=== PATIENT | female | born 1995 | race Hispanic/Latino ===

== ENCOUNTER 2019-07-29 06:59 | Inpatient (IN) | payer OTHER ==
--- NOTE | 2019-07-29 11:52 | PR ---
[facility] [address] [facility] [place], [place] [address] Signed Progress Notes IP Datetime Report Generated by CPN: 07/29/2019 11:51 PROGRESS NOTES: [id number] Impression: Normal progression of labor Procedures: Artificial ROM; Sterile Vag Exam Plan: Continue present management Informed Consent Obtain: Vaginal Delivery; Risks, Benefits and Alternatives Discussed VITAL SIGNS: [id number] Vital Signs: Reviewed; Within Normal Limits VS Notable Details: mild HTN EXAM: [id number] Dilatation: 7.0 Effacement: 100 Station: -2 Uterine Contractions: q 3 min MEMBRANES: [id number] Membrane Status: Intact ROM Note: AROM with large amount of clear fluid seen Comments: Progressing. Will continue. Fetus A: [id number] FHR Baseline: 130 Variability: Moderate 6-25bpm Accelerations: 15X15 Decelerations: None FHR Category: Category I Presentation: Vertex Comments on Fetus A: No evidence of metabolic acidosis Fetus B: [id number] Signing Physician: Velvet Johnson MD Copies: ~ *Electronically Signed* 07/29/19 1151 VELVET JOHNSON MD PATIENT NAME: HAMZAH GRAYSON PROGRESS NOTE DATE OF : [birth year] PHYSICIAN: VELVET JOHNSON MD RPT #: [id number] REPORT IS CONFIDENTIAL AND NOT TO BE RELEASED WITHOUT AUTHORIZATION
--- NOTE | 2019-07-29 12:46 | PR ---
[facility] [address] [facility] [place], [place] [address] Signed Progress Notes IP Datetime Report Generated by CPN: 07/29/2019 12:46 PROGRESS NOTES: [id number] Impression: Normal progression of labor; Non-reassuring heart rate Procedures: Sterile Vag Exam Plan: Continue present management Other Plans: position change Informed Consent Obtain: Vaginal Delivery; Risks, Benefits and Alternatives Discussed VITAL SIGNS: [id number] Vital Signs: Reviewed; Within Normal Limits VS Notable Details: mild HTN EXAM: [id number] Dilatation: 8.0 Effacement: 100 Station: -2 Uterine Contractions: q 3 min MEMBRANES: [id number] Membrane Status: Intact ROM Note: AROM with large amount of clear fluid seen Comments: Progressing. Will continue close observation. Fetus A: [id number] FHR Baseline: 130 Variability: Moderate 6-25bpm Accelerations: 15X15 Decelerations: Variable FHR Category: Category II Presentation: Vertex Comments on Fetus A: overall reassuring but will require close observation Fetus B: [id number] Signing Physician: Velvet Johnson MD Copies: ~ *Electronically Signed* 07/29/19 1246 VELVET JOHNSON MD PATIENT NAME: HAMZAH GRAYSON PROGRESS NOTE DATE OF : [birth year] PHYSICIAN: VELVET JOHNSON MD RPT #: [id number] REPORT IS CONFIDENTIAL AND NOT TO BE RELEASED WITHOUT AUTHORIZATION
--- NOTE | 2019-07-30 08:53 | PR ---
[facility] [address] [facility] [place], [place] [address] Signed PP Progress Notes Datetime Report Generated by CPGwen: 07/30/2019 08:53 SUBJECTIVE: [id number] Pain: Within normal limits Vital Signs: [id number] Vital Signs: Reviewed; Within Normal Limits EXAM: [id number] Cardiovascular: Not Done Respiratory: Not Done Abdomen/Uterus: Abnormal Lochia: Normal Vulva/Perineum: Not Done Breasts: Not Done CVA Tenderness: Not Done Extremities: Normal Incision: Not Applicable Progress: Normal Exam Comments: Fundus firm, NT @ U-1. H/H 9.4/29.5, WBC 9.7, plat 127k (prev 147k) IMPRESSION/PLAN/PROCEDURES: [id number] Impression: Normal progression Other Impression: mild decrease plat Plan: Continue present management Other Plans: repeat hemogram in am Procedures: None Progress Notes: Overall doing well. Has slightly decreased plat so will recheck tomorrow. Signing Physician: Velvet Johnson MD Copies: ~ *Electronically Signed* 07/30/19 0853 VELVET JOHNSON MD PATIENT NAME: RENUKA,HAMZAH PROGRESS NOTE DATE OF : [birth year] PHYSICIAN: VELVET JOHNSON MD RPT #: [id number] REPORT IS CONFIDENTIAL AND NOT TO BE RELEASED WITHOUT AUTHORIZATION
--- NOTE | 2019-07-31 08:47 | PR ---
[facility] [address] [place], [place] [address] Signed PP Progress Notes Datetime Report Generated by CPN: 07/31/2019 08:46 SUBJECTIVE: [id number] Pain: Within normal limits Pain Comments: Broke down last night. Has not been taking Celexa. Vital Signs: [id number] Vital Signs: Reviewed; Within Normal Limits EXAM: [id number] Cardiovascular: Not Done Respiratory: Not Done Abdomen/Uterus: Abnormal Lochia: Normal Vulva/Perineum: Not Done Breasts: Not Done CVA Tenderness: Not Done Extremities: Normal Incision: Not Applicable Progress: Abnormal Exam Comments: Fundus firm, NT @ U-1. H/H 9.7/30.2, WBC 7.8, plat 158k IMPRESSION/PLAN/PROCEDURES: [id number] Impression: Normal progression Other Impression: PP depression restarting Plan: Discharge Other Plans: repeat hemogram in am Procedures: None Progress Notes: Physically doing well but depression/anxiety appears to be worsening. This is overall a chronic problem but became much worse after her last delivery. I do think she would benefit from restarting the Celexa and she is amenable to this. Signing Physician: Velvet Johnson MD Copies: ~ *Electronically Signed* 07/31/19 0846 VELVET JOHNSON MD PATIENT NAME: HAMZAH GRAYSON PROGRESS NOTE DATE OF : [birth year] PHYSICIAN: VELVET JOHNSON MD RPT #: [id number] REPORT IS CONFIDENTIAL AND NOT TO BE RELEASED WITHOUT AUTHORIZATION
== END 2019-07-31 09:40 | disposition home or self-care (01) | DRG 807 ==
LOC: FBCO 06:59 → FBC 07:15
PROVIDERS: ADMIT Obstetrics & Gynecology
PROC: 10E0XZZ Delivery of Products of Conception, External Approach (ICD-10-PCS; principal; 2019-07-29)
PROC: 0KQM0ZZ Repair Perineum Muscle, Open Approach (ICD-10-PCS; 2019-07-29)
PROC: 10907ZC Drainage of Amniotic Fluid, Therapeutic from Products of Conception, Via Natural or Artificial Opening (ICD-10-PCS; 2019-07-29)
PROC: 00HU33Z Insertion of Infusion Device into Spinal Canal, Percutaneous Approach (ICD-10-PCS; 2019-07-29)
PROC: 3E0R3BZ Introduction of Anesthetic Agent into Spinal Canal, Percutaneous Approach (ICD-10-PCS; 2019-07-29)
DX: O99.824 Streptococcus B carrier state complicating childbirth (principal); Z37.0 Single live birth; Z3A.40 40 weeks gestation of pregnancy; O76 Abnormality in fetal heart rate and rhythm complicating labor and delivery; O70.1 Second degree perineal laceration during delivery; O99.344 Other mental disorders complicating childbirth; F32.9 Major depressive disorder, single episode, unspecified; O16.4 Unspecified maternal hypertension, complicating childbirth; F41.1 Generalized anxiety disorder; Z88.8 Allergy status to other drugs, medicaments and biological substances; Z79.899 Other long term (current) drug therapy
CPT/HCPCS: 01960; 36415; 85025; 85027; A9270; J2405; J2540; J2550; J2590; J2795; J7121